=== PATIENT | female | born 1975 | race African-American/Black ===

== ENCOUNTER 2023-09-15 13:45 | Day surgery (SDC) | payer BC, OTHER ==
[2023-09-15] MEDS: FERRIC CARBOXYMALTOSE 750 MG in SODIUM CHLORIDE 250 ML IVPB ONE (14:18)
[2023-09-15 18:19] VITALS: RESP 18; TEMP 98
[2023-09-15 18:21] VITALS: BP 115/71; PULSE 85
== END 2023-09-15 15:15 | disposition home or self-care (01) ==
LOC: JONCNONCHE 13:45 → J7W 13:55 → JONCNONCHE 15:15
PROVIDERS: ATTEND Internal Medicine Hematology & Oncology
PROC: 3E033GC Introduction of Other Therapeutic Substance into Peripheral Vein, Percutaneous Approach (ICD-10-PCS; principal; 2023-09-15)
DX: D50.9 Iron deficiency anemia, unspecified (principal)
CPT/HCPCS: 96365; J1439

== ENCOUNTER 2023-09-22 16:20 | Day surgery (SDC) | payer BC, OTHER ==
[2023-09-22] MEDS: FERRIC CARBOXYMALTOSE 750 MG in SODIUM CHLORIDE 250 ML IVPB ONE (16:29)
[2023-09-22 16:57] VITALS: RESP 18; TEMP 98.4
[2023-09-22 17:10] VITALS: BP 105/54; PULSE 75
== END 2023-09-22 17:10 | disposition home or self-care (01) ==
LOC: J7W 16:20 → JONCNONCHE 16:20
PROVIDERS: ATTEND Internal Medicine Hematology & Oncology
PROC: 3E033GC Introduction of Other Therapeutic Substance into Peripheral Vein, Percutaneous Approach (ICD-10-PCS; principal; 2023-09-22)
DX: D50.9 Iron deficiency anemia, unspecified (principal)
CPT/HCPCS: 96365; J1439